=== PATIENT | female | born 1985 | race Two or more races ===

== ENCOUNTER 2023-08-06 09:47 | Emergency (ER) | payer OTHER ==
[~2023-08-06] VITALS: Ht 160 cm; Wt 56.7 kg
== END 2023-08-06 10:48 | disposition home or self-care (01) ==
LOC: ER 09:48
DX: S61.213A Laceration without foreign body of left middle finger without damage to nail, initial encounter (principal); W26.0XXA Contact with knife, initial encounter; Y93.G3 Activity, cooking and baking; Y92.010 Kitchen of single-family (private) house as the place of occurrence of the external cause; Y99.9 Unspecified external cause status